=== PATIENT | female | born 1995 | race African-American/Black ===

== ENCOUNTER 2020-09-23 19:09 | Inpatient (IN) | payer MEDICAID ==
[~2020-09-23] VITALS: Ht 157.5 cm; Wt 83.9 kg
[2020-09-23] MEDS: LACTATED RINGERS 1,000 ML IV SCH (21:20)
[2020-09-23 22:21] LABS: BASOPHILS % 0.7 % (0.0-2.0); EOSINOPHILS % 0.6 % (0.0-5.0); HEMATOCRIT. 27.7 % (36.0-48.0); HEMOGLOBIN. 8.9 g/dL (12.0-16.0); LYMPHOCYTES % 13.9 % (20.0-50.0); MEAN CORPUSCULAR HEMOGLOBIN 24.1 pg (28.0-32.0); MEAN CORPUSCULAR VOLUME 75.2 fL (81.0-99.0); MEAN PLATELET VOLUME 9.6 fl (7.4-10.4); MONOCYTES % 8.4 % (2.0-8.0); NEUTROPHILS % 76.4 % (40.0-76.0); PLATELET 246 x1000/uL (130-400); RED BLOOD CELL COUNT 3.68 mill/uL (4.2-5.4); RED CELL DISTRIBUTION WIDTH 16.7 % (11.6-14.6)
[2020-09-23 22:27] LABS: CHLORIDE 109 mEq/L (98-107)
[2020-09-23 22:34] LABS: CLARITY URINE CLOUDY (CLEAR); COLOR URINE YELLOW (YELLOW); KETONES URINE TRACE (NEGATIVE); LEUKOCYTE ESTERASE URINE 3+ (NEGATIVE); NITRITE URINE NEGATIVE (NEGATIVE); OCCULT BLOOD URINE TRACE (NEGATIVE); PH URINE 5.5 (4.5-8.0); PROTEIN URINE NEGATIVE (NEGATIVE); SPECIFIC GRAVITY URINE 1.027 (1.005-1.030)
[2020-09-23 22:37] LABS: D-DIMER 0.52 mg/L FEU (<0.50); INR 0.9; PARTIAL THROMBOPLASTIN TIME 29.6 sec (23.4-31.0); PROTHROMBIN TIME 10.1 sec (9.6-11.0)
[2020-09-24] MEDS ORDERED: DINOPROSTONE 10MG VAGINAL INSERT VG ONE (00:15)
[2020-09-24] MEDS ORDERED: LIDOCAINE HCL 1% 20ML VIAL (Pyxis) INJ INFIL SCH (00:15)
[2020-09-24] MEDS: LACTATED RINGERS 1,000 ML IV SCH ×2 (00:52→12:50)
[2020-09-24] MEDS ORDERED: ROPIVACAINE HCL/PF EPIDURAL 200 ML EP SCH (01:30)
[2020-09-24 04:15] LABS: HEPATITIS B SURFACE ANTIGEN NEGATIVE
[2020-09-24] MEDS: BUTORPHANOL TARTRATE 2 MG/ML VIAL IV PRN ×2 (06:28→11:42)
[2020-09-24] MEDS ORDERED: MINERAL OIL 30ML BOTTLE PR SCH (07:15)
[2020-09-24] MEDS ORDERED: METHYLERGONOVINE MALEATE 0.2 MG/ML IM ONE (07:15)
[2020-09-24] MEDS ORDERED: FENTANYL CITRATE/PF 50MCG/ML 2ML VIAL ONE (13:13)
[2020-09-24] MEDS ORDERED: BUPIVACAINE HCL/PF 0.25% (2.5MG/ML) 10ML ONE (13:14)
[2020-09-24] MEDS ORDERED: BUPIVACAINE HCL/PF 0.5% (5MG/ML) 10ML ONE (13:14)
[2020-09-24] MEDS: DEXT 5%/LR + PITOCIN 20UNITS/L 1,000 ML IV SCH ×2 (15:35→16:45)
[2020-09-24 17:45] VITALS: BP 154/84
[2020-09-24] MEDS ORDERED: DEXT 5%/LR + PITOCIN 20UNITS/L 1,000 ML IV SCH (18:15)
[2020-09-24] MEDS ORDERED: DIPHENHYDRAMINE 25MG CAPSULE PO PRN (18:15)
[2020-09-24] MEDS ORDERED: IBUPROFEN 400MG TABLET PO PRN (18:15)
[2020-09-24] MEDS ORDERED: RHO(D) IMMUNE GLOBULIN 300 MCG/SYR IM PRN (18:15)
[2020-09-24] MEDS ORDERED: LANOLIN OINT 7GM TUBE TOP PRN (18:15)
[2020-09-24] MEDS ORDERED: METHYLERGONOVINE MALEATE 0.2 MG/ML IM PRN (18:15)
[2020-09-24 18:19] VITALS: BP 148/85
[2020-09-24 19:25] VITALS: BP 146/94
[2020-09-24] MEDS ORDERED: ONDANSETRON HCL 4MG/2ML INJ IV PRN (21:15)
[2020-09-24 23:45] VITALS: BP 138/90
[2020-09-25 07:35] LABS: BASOPHILS % 0.2 % (0.0-2.0); EOSINOPHILS % 0.2 % (0.0-5.0); HEMATOCRIT. 25.9 % (36.0-48.0); HEMOGLOBIN. 8.4 g/dL (12.0-16.0); LYMPHOCYTES % 8.7 % (20.0-50.0); MEAN CORPUSCULAR HEMOGLOBIN 24.7 pg (28.0-32.0); MEAN CORPUSCULAR VOLUME 76.1 fL (81.0-99.0); MEAN PLATELET VOLUME 9.4 fl (7.4-10.4); MONOCYTES % 6.9 % (2.0-8.0); PLATELET 222 x1000/uL (130-400); RED CELL DISTRIBUTION WIDTH 16.6 % (11.6-14.6)
[2020-09-25 08:23] VITALS: BP 154/92
[2020-09-25 10:23] LABS: *AMPHETAMINES SCREEN URINE NEGATIVE (NEGATIVE); *BARBITURATES SCREEN URINE NEGATIVE (NEGATIVE); *COCAINE SCREEN URINE NEGATIVE (NEGATIVE)
[2020-09-25 10:24] LABS: *BENZODIAZEPINES SCREEN URINE NEGATIVE (NEGATIVE); CANNABINOID URINE SCREEN NEGATIVE (NEGATIVE); METHADONE URINE SCREEN NEGATIVE (NEGATIVE); OPIATES URINE SCREEN NEGATIVE (NEGATIVE); PHENCYCLIDINE URINE SCREEN NEGATIVE (NEGATIVE)
[2020-09-25 12:21] VITALS: BP 164/95
[2020-09-25] MEDS: PRENATAL VIT/FE FUMARATE/FA TABLET PO SCH (14:32)
[2020-09-25 16:12] VITALS: BP 148/93
[2020-09-25 20:00] VITALS: BP 141/85
[2020-09-25 20:01] VITALS: BP 142/85
[2020-09-25] MEDS: IBUPROFEN 800MG TABLET PO PRN (23:09)
[2020-09-26] VITALS: BP 140/80
[2020-09-26 07:40] VITALS: BP 128/75
[2020-09-26] MEDS ORDERED: FERR325T6 MT (07:50)
[2020-09-26] MEDS ORDERED: IBUP-2030 PO (07:50)
[2020-09-26] MEDS ORDERED: MULT-1241 PO (07:50)
[2020-09-26] MEDS: PRENATAL VIT/FE FUMARATE/FA TABLET PO SCH (09:45)
[2020-09-26] MEDS: IBUPROFEN 800MG TABLET PO PRN (09:45)
== END 2020-09-26 11:46 | disposition home or self-care (01) | DRG 560 ==
LOC: OBSVTOIN 19:09 → 8 EST LDRP 19:09 → 8EST 09-24 16:53
PROVIDERS: ADMIT Obstetrics & Gynecology; ATTEND Obstetrics & Gynecology
PROC: 10E0XZZ Delivery of Products of Conception, External Approach (ICD-10-PCS; principal; 2020-09-24)
PROC: 0HQ9XZZ Repair Perineum Skin, External Approach (ICD-10-PCS; 2020-09-24)
PROC: 3E0R3BZ Introduction of Anesthetic Agent into Spinal Canal, Percutaneous Approach (ICD-10-PCS; 2020-09-24)
PROC: 00HU33Z Insertion of Infusion Device into Spinal Canal, Percutaneous Approach (ICD-10-PCS; 2020-09-24)
DX: O13.4 Gestational [pregnancy-induced] hypertension without significant proteinuria, complicating childbirth (principal); Z37.0 Single live birth; D62 Acute posthemorrhagic anemia; O69.81X0 Labor and delivery complicated by cord around neck, without compression, not applicable or unspecified; O99.02 Anemia complicating childbirth; O70.0 First degree perineal laceration during delivery; Z3A.39 39 weeks gestation of pregnancy
CPT/HCPCS: 36415; 76805; 76818; 80053; 80305; 81003; 84550; 85025; 85379; 85384; 86592; 86703; 86762; 86850; 86900; 87340; 99281; J0595; J2590; J3010; J3490; J7120

== ENCOUNTER 2021-01-02 20:14 | Emergency (ER) | payer MEDICAID ==
[~2021-01-02] VITALS: Ht 157.5 cm; Wt 77.0 kg
[~2021-01-02 20:14] MED LIST: FERR325T6 MT; IBUP-2030 PO; MULT-1241 PO
[2021-01-02 20:26] VITALS: BP 196/103
[2021-01-02] MEDS ORDERED: AMLODIPINE 2.5MG TABLET PO ONE (20:45)
== END 2021-01-03 02:11 | disposition left against medical advice (07) ==
LOC: ER 20:14
DX: I16.0 Hypertensive urgency (principal); Z98.890 Other specified postprocedural states
CPT/HCPCS: 71045; 93005; 99283